=== PATIENT | female | born 1995 | race Caucasian/White ===

== ENCOUNTER 2017-10-16 20:36 | Emergency (ER) | payer OTHER ==
[~2017-10-16] VITALS: Ht 160 cm; Wt 56.7 kg
[2017-10-16] MEDS ORDERED: AMOXICILLIN500 MG PO (20:48)
== END 2017-10-16 22:08 | disposition home or self-care (01) ==
LOC: ED 20:36
DX: Z00.8 Encounter for other general examination (principal)
CPT/HCPCS: 99282

== ENCOUNTER 2020-02-02 13:15 | Emergency (ER) | payer BC, OTHER ==
[~2020-02-02] VITALS: Ht 160 cm; Wt 60.3 kg
[~2020-02-02 13:15] MED LIST: AMOXICILLIN500 MG PO
[2020-02-02] MEDS ORDERED: PENICILLIN V P500 MG PO (16:11)
== END 2020-02-02 16:08 | disposition home or self-care (01) ==
LOC: ED 13:15
DX: J02.0 Streptococcal pharyngitis (principal); Z87.891 Personal history of nicotine dependence
CPT/HCPCS: 87880; 93005; 93010; 99283-25; C9803

== ENCOUNTER 2021-05-03 04:58 | Inpatient (IN) | payer OTHER ==
[~2021-05-03] VITALS: Ht 160 cm; Wt 67.6 kg
[~2021-05-03 04:58] MED LIST changes: +PENICILLIN V P500 MG PO
--- NOTE | 2021-05-03 05:14 | NUR ---
PT WAS SWABBED FOR COVID 19
[2021-05-03] MEDS ORDERED: PRENATAL VITAM1 EACH PO (05:20)
--- NOTE | 2021-05-03 10:44 | PR ---
[facility] [address] [place], [place] [address] Signed Progress Notes IP Datetime Report Generated by CPN: 05/03/2021 10:44 PROGRESS NOTES: [id number] Impression: Normal Progression of Labor; Reassuring Heart Rate Procedures: Sterile Vag Exam Plan: Continue Present Management; Anticipate Vaginal Delivery VITAL SIGNS: [id number] Vital Signs: Reviewed; Within Normal Limits EXAM: [id number] Dilatation: 9.0 Effacement: 100 Station: 0 Contractions: Rare MEMBRANES: [id number] Comments: Pt seen and examined. Comfortable w/ epidural. Continued clear fluid. Discussed progress of labor. Doing well. FETUS A: [id number] FHR Baseline: 125 Variability: Moderate 6-25bpm Accelerations: 15X15 Decelerations: None FHR Category: Category I Presentation: Vertex Comments on Fetus A: No evidence of metabolic acidosis FETUS B: [id number] Signing Physician: Medhat Jackson DO Copies: ~ *Electronically Signed* 05/03/21 1044 MEDHAT JACKSON DO PATIENT NAME: RAEGAN VALLECILLO PROGRESS NOTE DATE OF : [birth year] PHYSICIAN: MEDHAT JACKSON DO RPT #: [id number] REPORT IS CONFIDENTIAL AND NOT TO BE RELEASED WITHOUT AUTHORIZATION
== END 2021-05-04 16:12 | disposition home or self-care (01) | DRG 807 ==
LOC: FBC 04:58
PROVIDERS: ADMIT Obstetrics & Gynecology; ATTEND Obstetrics & Gynecology
PROC: 10E0XZZ Delivery of Products of Conception, External Approach (ICD-10-PCS; principal; 2021-05-03)
PROC: 0KQM0ZZ Repair Perineum Muscle, Open Approach (ICD-10-PCS; 2021-05-03)
PROC: 3E0R3BZ Introduction of Anesthetic Agent into Spinal Canal, Percutaneous Approach (ICD-10-PCS; 2021-05-03)
PROC: 00HU33Z Insertion of Infusion Device into Spinal Canal, Percutaneous Approach (ICD-10-PCS; 2021-05-03)
DX: O48.0 Post-term pregnancy (principal); Z37.0 Single live birth; O70.1 Second degree perineal laceration during delivery; Z3A.41 41 weeks gestation of pregnancy; O43.123 Velamentous insertion of umbilical cord, third trimester; Z87.891 Personal history of nicotine dependence
CPT/HCPCS: 85027; A9270; J2795; J3010; J7121; U0003

== ENCOUNTER 2021-11-23 10:34 | Day surgery (SDC) | payer OTHER ==
[~2021-11-23] VITALS: Ht 162.6 cm; Wt 62.0 kg
[~2021-11-23 10:34] MED LIST changes: +CEPHALEXIN500 MG PO; +DEPO-PROVE150 MG/1 M; +PRENATAL VITAM1 EACH PO
--- NOTE | 2021-11-23 13:05 | NUR ---
11/23/21 Hu5 Johana Hathaway 1302- PT ARRIVES TO PACU AWAKE AND TALKING. PT REPORTS NO PAIN OR NAUSEA. RESP EVEN AND UNLABORED. OXYGEN SAT HIGH 90'S TO 100% ON 2L VIA CO2 NC.
--- NOTE | 2021-11-25 11:00 | OR ---
[facility] [address] [place], [place] [address] Signed DATE OF OPERATION: 11/23/2021 SURGEON: Mane Hussein MD PREOPERATIVE DIAGNOSES: 1. History of rectal bleeding and pain upon defecation. 2. state (September 2021). POSTOPERATIVE DIAGNOSES: Normal-appearing colon and anal rectum. PROCEDURE: Total colonoscopy to cecum with biopsy of left colon and rectum. ANESTHESIA: Intravenous sedation, fentanyl 150 mcg and Versed 7 mg. 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 The patient delivered a healthy infant in September of 2021. The patient has had five months of episodic anal pain and blood per rectum. More recently, her symptoms have resolved entirely. Clinical suspicion is high for anal fissure. Colonoscopy has been recommended to assess not only for probable fissure, but also inflammatory bowel disease, specifically Crohn's or ulcerative colitis. The patient still has episodes of rectal bleeding from time to time, but not anal pain on defecation. She understands the risks of colonoscopy including but not limited to bleeding, infection, and perforation and wished to proceed. FINDINGS: The prep was excellent. Complete colonoscopy was undertaken to the cecum without question. She had no abnormality that was grossly visible including no evidence of anal fissure, hemorrhoids, proctitis, diverticulosis, or other abnormality. DESCRIPTION OF PROCEDURE: The patient was brought to the endoscopy suite and placed in lateral decubitus position given intravenous sedation to the point of slurred speech and nystagmus. Anorectal examination showed no sign of hemorrhoidal disease. No fissure or other abnormality. Digital rectal examination was normal. An Olympus video colonoscope was passed into the rectum and manipulated throughout the Electronically Signed By: MANE HUSSEIN MD 11/25/21 [facility] PATIENT NAME: REAGAN VALLECILLO OPERATIVE REPORT DATE OF : [birth year] REPORT #: [id number] PHYSICIAN: MANE HUSSEIN MD PCP: MEDHAT JACKSON DO REPORT IS CONFIDENTIAL AND NOT TO BE RELEASED WITHOUT AUTHORIZATION [facility] [address] [place], [place] [address] Signed colon ultimately intubating the cecum itself. The ileocecal valve and appendiceal orifice were normal and photographed. The scope was withdrawn from that point and examination throughout showed crystal clear mucosal blood vessels. No evidence of edema or inflammation particular. There was an area in the left colon that had mild edema, likely related to the scope passage, this area was biopsied. Further withdrawal of scope showed no other abnormalities and retroflexed view was normal as well. Biopsies obtained of the rectum to assess for occult proctitis. Withdrawal of scope through the anal canal showed no sign of fissure or other problem. Additional examination physically showed no anorectal problem, no fissure, no fistula or other problem. The scope was removed. The patient was taken to the recovery room in good condition. CONCLUDING DIAGNOSIS: Colon I normal at this time. I suspect that she probably had an anal fissure that has resolved on its own entirely. PLAN: Recommend high-fiber diet. If she has recurrence of symptoms, I am happy to see her in the office again, and we will treat accordingly. She will return to the ongoing care of Dr. Radha Jackson otherwise. MD LUIS Pedersen/MODL /[id number] cc: Medhat Jackson DO Copies: MEDHAT JACKSON DO ~ Electronically Signed By: MANE HUSSEIN MD 11/25/21 1100 PATIENT NAME: REAGAN VALLECILLO OPERATIVE REPORT DATE OF : [birth year] REPORT #: [id number] PHYSICIAN: MANE HUSSEIN MD PCP: MEDHAT JACKSON DO REPORT IS CONFIDENTIAL AND NOT TO BE RELEASED WITHOUT AUTHORIZATION
== END 2021-11-23 13:40 | disposition home or self-care (01) ==
LOC: OPS 10:34 → DS 10:39 → OPS 12:15 → DS 14:45
PROVIDERS: ATTEND Surgery
PROC: 0DBG8ZX Excision of Left Large Intestine, Via Natural or Artificial Opening Endoscopic, Diagnostic (ICD-10-PCS; principal; 2021-11-23 13:00)
DX: K62.5 Hemorrhage of anus and rectum (principal); R19.7 Diarrhea, unspecified; Z20.822 Contact with and (suspected) exposure to COVID-19
CPT/HCPCS: 84703; 87502; 99153; C9803; G0500; J2250; J3010; U0003